=== PATIENT | female | born 1980 | race Caucasian/White ===

== ENCOUNTER 2021-10-23 16:02 | Emergency (ER) | payer MEDICAID ==
[2021-10-23] MEDS ORDERED: IBUPROFEN 800 MG TABLET PO STA (16:16)
--- NOTE | 2021-10-23 16:17 | ED Physician Documentation ---
PD HPI ABD PAIN - Stated complaint Stated Complaint: FEMALE /ABD PX - Chief complaint Chief Complaint: Abd Pain - History obtained from History obtained from: Patient - Additional information Additional information: She developed vaginal pain about 4 days ago and then subsequently has had intermittent right lower quadrant pain which has been more severe today. It is associated with urinary frequency and dysuria as well as cloudy urine without any gross hematuria. Never had this before. No history of renal colic. Review of Systems Ten Systems: 10 systems reviewed and negative Constitutional: denies: Fever, Chills Cardiac: reports: Reviewed and negative Respiratory: reports: Reviewed and negative PD PAST MEDICAL HISTORY - Present Medications Home Medications: Ambulatory Orders Medication Instructions Recorded Confirmed Gabapentin [Neurontin] 300 mg PO TID #20 cap 10/23/21 Ibuprofen [Motrin] 800 mg PO Q8H PRN #30 tablet 10/23/21 Tamsulosin [Flomax] 0.4 mg PO DAILY #14 cap 10/23/21 - Allergies Allergies/Adverse Reactions: Allergies Allergy/AdvReac Type Severity Reaction Status Date / Time No Known Drug Allergies Allergy Verified 10/23/21 16:10 PD ED PE NORMAL - Vitals Vital signs reviewed: Yes - General General: Alert and oriented X 3, No acute distress - Cardiac Cardiac: RRR, No murmur - Respiratory Respiratory: No respiratory distress, Clear bilaterally - Abdomen Abdomen: Normal bowel sounds, Soft, Other (Mild tenderness in the right lower quadrant without surgical signs. No right CVA tenderness. No Rovsing sign.) - Derm Derm: Normal color, Warm and dry - Extremities Extremities: No edema, No calf tenderness / cord - Neuro Neuro: Alert and oriented X 3, Normal speech Results - Vitals Vitals: Vital Signs - 24 hr 10/23/21 10/23/21 16:05 18:27 Temperature 36.5 C Heart Rate 71 58 L Respiratory 14 16 Rate Blood Pressure 116/81 H 116/64 O2 Saturation 100 97 Oxygen O2 Source Room air - Labs Labs: Laboratory Tests 10/23/21 10/23/21 10/23/21 16:24 16:26 16:26 WBC 8.9 RBC 4.54 Hgb 13.7 Hct 40.9 MCV 90.1 MCH 30.2 MCHC 33.5 RDW 12.9 Plt Count 273 MPV 9.4 Neut # (Auto) 4.4 Lymph # (Auto) 3.2 Jenkins # (Auto) 0.8 Eos # (Auto) 0.4 Baso # (Auto) 0.0 Absolute Nucleated RBC 0.00 Nucleated RBC % 0.0 Sodium 139 Potassium 4.0 Chloride 105 Carbon Dioxide 24 Anion Gap 10.0 BUN 15 Creatinine 0.6 Estimated GFR (MDRD) 111 Glucose 85 Calcium 9.8 Total Bilirubin 0.4 AST 21 ALT 28 Alkaline Phosphatase 37 L Total Protein 7.0 Albumin 4.2 Globulin 2.8 Albumin/Globulin Ratio 1.5 Urine Color YELLOW Urine Clarity HAZY Urine pH 6.0 Ur Specific [place] 1.025 Urine Protein NEGATIVE Urine Glucose (UA) NEGATIVE Urine Ketones NEGATIVE Urine Occult Blood MODERATE H Urine Nitrite NEGATIVE Urine Bilirubin NEGATIVE Urine Urobilinogen 2 H Ur Leukocyte Esterase NEGATIVE Urine RBC 11-25 H Urine WBC 6-10 H Ur Squamous Epith Cells MOD Squamous H Urine Bacteria Moderate H Ur Microscopic Review INDICATED Urine Culture Comments NOT INDICATED Urine HCG, Qual NEGATIVE - Rads (name of study) CT KUB Radiology: EMP read contemporaneously PD MEDICAL DECISION MAKING - ED course ED course: 41-year-old woman presents with right lower quadrant pain, some urinary symptoms. Benign exam for the most part. Blood work unremarkable, urinalysis showing blood some, some contamination with skin cells. CT showing a fairly large right UVJ stone. Pain was controlled here and she like to avoid narcotics because of a history of addiction to same. Discussed need to follow-up with urology. Departure - Departure Disposition: 01 Home, Self Care Clinical Impression: Renal colic on right side Condition: Good Record reviewed to determine appropriate education?: Yes Instructions: ED Stone Renal W Colic Prescriptions: Tamsulosin [Flomax] 0.4 mg PO DAILY #14 cap Ibuprofen [Motrin] 800 mg PO Q8H PRN #30 tablet PRN Reason: PAIN &/OR FEVER Gabapentin [Neurontin] 300 mg PO TID #20 cap Comments: I sent your prescriptions electronically to [facility] in [place]. As discussed you have a right-sided kidney stone measuring a maximum diameter 7 mm likely will need to have a urologist remove this. Closest urology is in [place], phone number is [phone], call tomorrow for an appointment. In addition to the prescription medications you can take Tylenol as needed per package instructions. Take the copy of the CAT scan on CD with you to the urology appointment.
[2021-10-23 16:32] LABS: BILIRUBIN,URINE NEGATIVE (NEGATIVE); GLUCOSE, URINE (UA) NEGATIVE (NEGATIVE); KETONES,URINE (UA) NEGATIVE (NEGATIVE); LEUKOCYTE ESTERASE, URINE NEGATIVE (NEGATIVE); NITRITE,URINE NEGATIVE (NEGATIVE); OCCULT BLOOD,URINE MODERATE (NEGATIVE); PROTEIN,URINE NEGATIVE (NEGATIVE); UROBILINOGEN,URINE 2 E.U./dL (NORMAL)
[2021-10-23 16:35] LABS: CLARITY,URINE HAZY (CLEAR); HCG UR QUAL NEGATIVE
[2021-10-23 16:44] LABS: ALBUMIN 4.2 g/dL (3.2-5.5); ALBUMIN/GLOBULIN RATIO 1.5 (1.0-2.2); BASOPHILS % (AUTO) 0.3 %; BILIRUBIN,TOTAL 0.4 mg/dL (0.2-1.0); CALCIUM 9.8 mg/dL (8.5-10.3); CREATININE 0.6 mg/dL (0.4-1.0); EOSINOPHILS # (AUTO) 0.4 10^3/uL (0.0-0.7); EOSINOPHILS % (AUTO) 4.4 %; HCT - HEMATOCRIT 40.9 % (37.0-47.0); HGB - HEMOGLOBIN 13.7 g/dL (12.0-16.0); LYMPHOCYTES # (AUTO) 3.2 10^3/uL (1.5-3.5); LYMPHOCYTES % (AUTO) 36.5 %; MEAN CORPUSCULAR HEMOGLOBIN 30.2 pg (27.0-31.0); MEAN CORPUSCULAR HGB CONC 33.5 g/dL (32.0-36.0); MEAN CORPUSCULAR VOLUME 90.1 fL (81.0-99.0); MEAN PLATELET VOLUME 9.4 fL (7.9-10.8); MONOCYTES # (AUTO) 0.8 10^3/uL (0.0-1.0); MONOCYTES % (AUTO) 8.6 %; NEUTROPHILS # (AUTO) 4.4 10^3/uL (1.5-6.6); PLT - PLATELET COUNT 273 10^3/uL (130-450); RED BLOOD COUNT 4.54 10^6/uL (4.20-5.40); RED CELL DISTRIBUTION WIDTH 12.9 % (12.0-15.0); WHITE BLOOD COUNT 8.9 x10^3/uL (4.8-10.8)
[2021-10-23 16:46] LABS: BACTERIA,URINE Moderate /HPF (None Seen); SQUAMOUS EPITHELIAL CELL,UR MOD Squamous (<= Few)
[2021-10-23 18:28] VITALS: BP 116/64
--- NOTE | 2021-10-23 18:32 | CT Report ---
PROCEDURE: CT abdomen pelvis without contrast INDICATIONS: RLQ pain/hematuria TECHNIQUE: Noncontrast 5 mm thick sections acquired from the diaphragms to the symphysis. 5 mm coronal and sagi ttal reformats were then performed. For radiation dose reduction, the following was used: automated exposure control, adjustment of mA and/or kV according to patient size. COMPARISON: None. FINDINGS: Image quality: Excellent. ABDOMEN: Lung bases: Lung bases are clear. Heart size is normal. Solid organs: Liver and spleen are normal in size. Gallbladder unremarkable. Pancreas is normal in contours. No adrenal nodules. 7 x 4.5 mm calculus at the right ureterovesical junction results in m oderate right hydronephrosis and hydroureter. Peritoneum and bowel: Unenhanced bowel loops demonstrate normal wall thickness and caliber. No free fluid or air. Normal appearing appendix identified on the coronal series. Moderate to fecal debris p resent in the right colon. Nodes and vessels: No retroperitoneal or mesenteric adenopathy by size criteria. Aorta and inferior vena cava are normal in caliber. Miscellaneous: No ventral hernias. PELVIS: Genitourinary: Bladder wall thickness is normal. Miscellaneous: No inguinal hernias or adenopathy. Bones: No suspicious bony lesions. No vertebral body compression fractures. IMPRESSION: 1. Normal appendix identified. No evidence of appendicitis. 2. Distal right ureterovesical junction calculus measures 7 x 4.5 mm, and results in moderate right h ydronephrosis and hydroureter. Reviewed by: Karan Granger MD on 10/23/2021 5:31 PM ABHISHEK Approved by: Karan Granger MD on 10/23/2021 5:31 PM AKDT Station ID: [id number]
[2021-10-23] MEDS ORDERED: KETOROLAC 60 MG/2 ML VIAL IM STA (18:42)
[2021-10-23] MEDS ORDERED: TAMSULOSIN 0.4 MG CAPSULE PO STA (18:42)
== END 2021-10-23 19:10 | disposition home or self-care (01) ==
LOC: ED 16:02
DX: N23 Unspecified renal colic (principal)
CPT/HCPCS: 36415; 74176; 80053; 81001; 81025; 85025; 96372; 99282; 99284; A9270; 81003; 87086

== ENCOUNTER 2023-07-26 09:41 | Emergency (ER) | payer MEDICAID ==
--- NOTE | 2023-07-26 10:15 | ED Physician Documentation ---
PD HPI HEENT - Stated complaint Stated Complaint: TOOTH PX/RT SD - Chief complaint Chief Complaint: Heent - History obtained from History obtained from: Patient PD PAST MEDICAL HISTORY - Past Medical History Past Medical History: Yes Psych: Depression, Anxiety - Past Surgical History Past Surgical History: No - Present Medications Home Medications: Ambulatory Orders Medication Instructions Recorded Confirmed Gabapentin [Neurontin] 300 mg PO TID #20 cap 10/23/21 07/26/23 FLUoxetine [PROzac] 10 mg PO DAILY 07/26/23 07/26/23 Methadone [Methadone Hcl] 195 mg PO DAILY 07/26/23 07/26/23 - Allergies Allergies/Adverse Reactions: Allergies Allergy/AdvReac Type Severity Reaction Status Date / Time No Known Drug Allergies Allergy Verified 07/26/23 09:56 - Social History Does the pt smoke?: Yes Smoking Status: Current every day smoker Results - Vitals Vitals: Vital Signs - 24 hr 07/26/23 09:53 Temperature 36.4 C L Heart Rate 73 Respiratory 16 Rate Blood Pressure 125/81 H O2 Saturation 99 Oxygen O2 Source Room air Departure - Departure
--- NOTE | 2023-07-26 10:15 | ED Physician Documentation ---
PD HPI HEENT - Stated complaint Stated Complaint: TOOTH PX/RT SD - Chief complaint Chief Complaint: Heent - History obtained from History obtained from: Patient - History of Present Illness Timing - onset: How many days ago (few) Timing - duration: Days (few) Timing - details: Gradual onset, Still present Location: Tooth (right lower, with prior cavities, but now having pain, with some local swelling of gum. No drainage. Pain to right ear area but no change in hearing. No throat swelling.) Improves: Medication (ibuprofen helps for short time.) Worsens: Temperatures, Other (chewing). No: Swalllowing Review of Systems Constitutional: denies: Fever, Chills Cardiac: denies: Chest pain / pressure PD PAST MEDICAL HISTORY - Past Medical History Past Medical History: Yes Psych: Depression, Anxiety - Past Surgical History Past Surgical History: No - Present Medications Home Medications: Ambulatory Orders Medication Instructions Recorded Confirmed Gabapentin [Neurontin] 300 mg PO TID #20 cap 10/23/21 07/26/23 FLUoxetine [PROzac] 10 mg PO DAILY 07/26/23 07/26/23 HYDROcod/ACETAM 5/325 [[place] 5/325] 1 ea PO Q6H PRN #12 tablet 07/26/23 Methadone [Methadone Hcl] 195 mg PO DAILY 07/26/23 07/26/23 Naproxen 500 mg PO BID #20 tab 07/26/23 clindamycin HCL [Clindamycin HCl] 300 mg PO TID 7 Days #20 cap 07/26/23 - Allergies Allergies/Adverse Reactions: Allergies Allergy/AdvReac Type Severity Reaction Status Date / Time No Known Drug Allergies Allergy Verified 07/26/23 09:56 - Social History Does the pt smoke?: Yes Smoking Status: Current every day smoker PD ED PE NORMAL - Vitals Vital signs reviewed: Yes - General General: Alert and oriented X 3, No acute distress, Well developed/nourished - HEENT HEENT: Ears normal, Pharynx benign. No: Dentition benign (multiple caries noted. Decay in area of pain. Gum with tenderness and mild swelling, no fluctuance. ) - Neck Neck: Supple, no meningeal sign, No adenopathy - Cardiac Cardiac: RRR, No murmur - Respiratory Respiratory: No respiratory distress, Clear bilaterally Results - Vitals Vitals: Vital Signs - 24 hr 07/26/23 07/26/23 09:53 11:01 Temperature 36.4 C L 36.5 C Heart Rate 73 68 Respiratory 16 18 Rate Blood Pressure 125/81 H 135/72 H O2 Saturation 99 98 Oxygen O2 Source Room air PD Medical Decision Making - ED course Complexity details: considered differential (could be dental pain from inflammation of nerve/tooth base periapical. However common cause would be infectious, so will cover with abx, NSAIDs, and pain meds. She states she has appt with her dentist for next week. ), d/w patient Departure - Departure Disposition: Home, Self Care Clinical Impression: Pain due to dental caries, Dental infection Condition: Stable Record reviewed to determine appropriate education?: Yes Follow-Up: Keven Vidal PA-C [Primary Care Provider] - Prescriptions: clindamycin HCL [Clindamycin HCl] 300 mg PO TID 7 Days #20 cap Naproxen 500 mg PO BID #20 tab HYDROcod/ACETAM 5/325 [[place] 5/325] 1 ea PO Q6H PRN #12 tablet PRN Reason: Pain Comments: We can go with anti-inflammatory as well as some pain medicine for your tooth. Naproxen 500 mg twice daily with food. To that add Tylenol 500 to 650 mg 4 times daily over the next several days. Add hydrocodone/acetaminophen if needed for worse pain. Since flareups of pain like this can be associated with infection, would also add antibiotic clindamycin 3 times daily for the next week. Follow-up with your dentist next week as planned. I sent your prescription to the [facility] pharmacy. I am prescribing a short course of narcotic pain medication for you. These are potentially dangerous and addictive medications that should be used carefully. These medications may constipate you. Take an [id number] stool softener such as docusate twice daily with plenty of water while taking these medications. If you go 24 hours without a bowel movement, take [id number] MiraLAX, per package instructions. Do not drink or drive while taking these medications. If you received narcotic or sedating medications while in the emergency department do not drive for 24 hours. Store this medication in a safe, secure place and out of reach of children. It is a violation of federal law to give or sell this medication to another person or to use in a manner other than prescribed. The ED will not refill narcotic prescriptions, including prescriptions lost or stolen. You can dispose of unwanted medications at the [facility]'s office or at several pharmacies such as [facility]. Forms: PCP List Discharge Date/Time: 07/26/23 11:15
[2023-07-26] MEDS: CLINDAMYCIN 150 MG CAPSULE PO STA (10:41)
[2023-07-26] MEDS: IBUPROFEN 600 MG TABLET PO STA (10:41)
[2023-07-26 11:06] VITALS: BP 135/72; O2SAT 98
== END 2023-07-26 11:15 | disposition home or self-care (01) ==
LOC: ED 09:41
DX: K04.7 Periapical abscess without sinus (principal); K02.9 Dental caries, unspecified; F17.200 Nicotine dependence, unspecified, uncomplicated; Z79.899 Other long term (current) drug therapy
CPT/HCPCS: 99283; A9270